=== PATIENT | male | born 2000 | race American Indian/Alaskan Native ===

== ENCOUNTER 2021-04-23 10:36 | Emergency (ER) | payer OTHER ==
--- NOTE | 2021-04-23 12:48 | Emergency Department Report ---
ED General Adult HPI - General Chief complaint: Hyperglycemia Stated complaint: SYMPTOMS OF DIABETES Time Seen by Provider: 04/23/21 12:23 Source: patient Mode of arrival: Ambulatory Limitations: No Limitations - History of Present Illness Initial comments: Patient is a 20-year-old male who presents due to concerns of diabetes. He states he has had symptoms for approximately a month but got worse in the last week. He has associated increased thirst, dry mouth, polyuria, nausea. He denies any fever, nausea, vomiting, diarrhea, cough, shortness of breath, recent illness, dark illness. Patient has no past medical history. No allergies to medicines. He states diabetes does run in his family. - Related Data Previous Rx's Medication Instructions Recorded Last Taken Type Blood Sugar Diagnostic [Test 1 each MC TID #1 box 04/23/21 Unknown Rx Strips] Insulin NPH/Regular [Novolin 70/30] 15 unit SUB-Q TIDAC #1 vial 04/23/21 Unknown Rx Syringe-Needle,Insulin,0.5 ml 1 each MC TIDAC #1 box 04/23/21 Unknown Rx [Insulin Syringe/Needle 0.5 ML] Allergies Allergy/AdvReac Type Severity Reaction Status Date / Time No Known Allergies Allergy Unverified 04/23/21 12:19 ED Review of Systems ROS: Stated complaint: SYMPTOMS OF DIABETES Other details as noted in HPI Comment: All other systems reviewed and negative ED Past Medical Hx - Past Medical History Previous Medical History?: No - Surgical History Past Surgical History?: No - Medications Home Medications: Home Medications Medication Instructions Recorded Confirmed Last Taken Type Blood Sugar Diagnostic [Test 1 each MC TID #1 box 04/23/21 Unknown Rx Strips] Insulin NPH/Regular [Novolin 70/30] 15 unit SUB-Q TIDAC #1 vial 04/23/21 Unknown Rx Syringe-Needle,Insulin,0.5 ml 1 each MC TIDAC #1 box 04/23/21 Unknown Rx [Insulin Syringe/Needle 0.5 ML] ED Physical Exam - General Limitations: No Limitations General appearance: alert, in no apparent distress - Head Head exam: Present: atraumatic, normocephalic - Eye Eye exam: Present: normal appearance - ENT ENT exam: Present: mucous membranes moist - Respiratory Respiratory exam: Present: normal lung sounds bilaterally. Absent: respiratory distress, wheezes, rales, rhonchi, stridor, chest wall tenderness, accessory muscle use, decreased breath sounds, prolonged expiratory - Cardiovascular Cardiovascular Exam: Present: regular rate, normal rhythm, normal heart sounds. Absent: systolic murmur, diastolic murmur, rubs, gallop - Neurological Exam Neurological exam: Present: alert, oriented X3 - Psychiatric Psychiatric exam: Present: normal affect, normal mood - Skin Skin exam: Present: warm, dry, intact ED Course Vital Signs 04/23/21 04/23/21 04/23/21 15:32 16:32 18:14 Temperature Pulse Rate 95 H 80 Respiratory 18 19 18 Rate Blood Pressure 131/81 131/81 [Right] O2 Sat by Pulse 99 98 100 Oximetry 04/23/21 19:00 Temperature 98.5 F Pulse Rate 99 H Respiratory 16 Rate Blood Pressure 120/78 [Right] O2 Sat by Pulse 96 Oximetry - Consultations Consultation #1: 04/23/21 13:[address] Davis, ER attending who advises hospitalist admission and insulin drip 04/23/21 13:[address] Ruiz, hospitalist regarding patient presentation and results, he advised to give patient IV fluids and 10 to 15 units of IV insulin a nd to hold insulin drip for now and he will assess patient in the emergency department 04/23/21 13:[address] Davis, ER attending who is agreeable with plan 04/23/21 16:[address] Davis, ER attending regarding patient's repeat labs, he advised he will order a insulin drip and he will discuss case with hospitalist - EJ/Peripheral Line Arm L Time Out Performed: Yes Indications: other (pt needs IV for fluids and medications, nurse available due to staffing ) Skin Cleansed in Sterile Fashion: Yes Size: 20 Dressing Placed: Tegaderm, tape Patient Tolerated Procedure: well, no complications ED Medical Decision Making - Lab Data Result diagrams: 04/23/21 12:28 04/23/21 20:17 Labs 04/23/21 04/23/21 04/23/21 12:18 12:28 12:28 WBC 8.7 RBC 5.40 H Hgb 14.8 Hct 48.1 H MCV 89 MCH 28 MCHC 31 L RDW 13.7 Plt Count 354 Lymph % (Auto) 12.8 L [place] % (Auto) 6.3 Eos % (Auto) 0.2 Baso % (Auto) 0.3 Lymph # (Auto) 1.1 L [place] # (Auto) 0.5 Eos # (Auto) 0.0 Baso # (Auto) 0.0 Seg Neutrophils % 80.4 H Seg Neutrophils # 7.0 VBG pH Sodium 123 L Potassium 4.6 Chloride 81.1 L Carbon Dioxide 22 Anion Gap 25 BUN 14 Creatinine 1.3 Estimated GFR > 60 BUN/Creatinine Ratio 11 Glucose 1181 H* POC Glucose > 600 H Calcium 10.0 Phosphorus Magnesium Total Bilirubin 0.80 AST 28 ALT 43 Alkaline Phosphatase 150 H Total Protein 7.8 Albumin 4.6 Albumin/Globulin Ratio 1.4 Urine Color Urine Turbidity Urine pH Ur Specific [place] Urine Protein Urine Glucose (UA) Urine Ketones Urine Blood Urine Nitrite Urine Bilirubin Urine Urobilinogen Ur Leukocyte Esterase Urine WBC (Auto) Urine RBC (Auto) 04/23/21 04/23/21 04/23/21 12:28 14:55 15:12 WBC RBC Hgb Hct MCV MCH MCHC RDW Plt Count Lymph % (Auto) [place] % (Auto) Eos % (Auto) Baso % (Auto) Lymph # (Auto) [place] # (Auto) Eos # (Auto) Baso # (Auto) Seg Neutrophils % Seg Neutrophils # VBG pH 7.304 L Sodium 133 L D Potassium 4.6 Chloride 89.0 L Carbon Dioxide 26 Anion Gap 23 BUN 14 Creatinine 1.2 Estimated GFR > 60 BUN/Creatinine Ratio 12 Glucose 738 H* POC Glucose > 600 H Calcium 11.1 H Phosphorus Magnesium Total Bilirubin AST ALT Alkaline Phosphatase Total Protein Albumin Albumin/Globulin Ratio Urine Color Urine Turbidity Urine pH Ur Specific [place] Urine Protein Urine Glucose (UA) Urine Ketones Urine Blood Urine Nitrite Urine Bilirubin Urine Urobilinogen Ur Leukocyte Esterase Urine WBC (Auto) Urine RBC (Auto) 04/23/21 04/23/21 04/23/21 16:54 16:54 17:47 WBC RBC Hgb Hct MCV MCH MCHC RDW Plt Count Lymph % (Auto) [place] % (Auto) Eos % (Auto) Baso % (Auto) Lymph # (Auto) [place] # (Auto) Eos # (Auto) Baso # (Auto) Seg Neutrophils % Seg Neutrophils # VBG pH Sodium 138 Potassium 4.6 Chloride 95.4 L Carbon Dioxide 22 Anion Gap 25 BUN 13 Creatinine 1.3 Estimated GFR > 60 BUN/Creatinine Ratio 10 Glucose 586 H* POC Glucose 483 H Calcium 9.9 Phosphorus 3.80 Magnesium 2.30 Total Bilirubin AST ALT Alkaline Phosphatase Total Protein Albumin Albumin/Globulin Ratio Urine Color Urine Turbidity Urine pH Ur Specific [place] Urine Protein Urine Glucose (UA) Urine Ketones Urine Blood Urine Nitrite Urine Bilirubin Urine Urobilinogen Ur Leukocyte Esterase Urine WBC (Auto) Urine RBC (Auto) 04/23/21 04/23/21 04/23/21 18:16 18:53 20:04 WBC RBC Hgb Hct MCV MCH MCHC RDW Plt Count Lymph % (Auto) [place] % (Auto) Eos % (Auto) Baso % (Auto) Lymph # (Auto) [place] # (Auto) Eos # (Auto) Baso # (Auto) Seg Neutrophils % Seg Neutrophils # VBG pH Sodium 139 Potassium 3.8 Chloride 96.8 L Carbon Dioxide 23 Anion Gap 23 BUN 12 Creatinine 1.2 Estimated GFR > 60 BUN/Creatinine Ratio 10 Glucose 487 H POC Glucose 492 H 342 H Calcium 9.9 Phosphorus Magnesium Total Bilirubin AST ALT Alkaline Phosphatase Total Protein Albumin Albumin/Globulin Ratio Urine Color Urine Turbidity Urine pH Ur Specific [place] Urine Protein Urine Glucose (UA) Urine Ketones Urine Blood Urine Nitrite Urine Bilirubin Urine Urobilinogen Ur Leukocyte Esterase Urine WBC (Auto) Urine RBC (Auto) 04/23/21 04/23/21 20:17 Unknown WBC RBC Hgb Hct MCV MCH MCHC RDW Plt Count Lymph % (Auto) [place] % (Auto) Eos % (Auto) Baso % (Auto) Lymph # (Auto) [place] # (Auto) Eos # (Auto) Baso # (Auto) Seg Neutrophils % Seg Neutrophils # VBG pH Sodium 141 Potassium 3.4 L Chloride 99.7 Carbon Dioxide 25 Anion Gap 20 BUN 11 Creatinine 1.0 Estimated GFR > 60 BUN/Creatinine Ratio 11 Glucose 376 H POC Glucose Calcium 10.6 H Phosphorus Magnesium Total Bilirubin AST ALT Alkaline Phosphatase Total Protein Albumin Albumin/Globulin Ratio Urine Color Colorless Urine Turbidity Clear Urine pH 5.0 Ur Specific [place] 1.024 Urine Protein <15 mg/dl Urine Glucose (UA) >=500 Urine Ketones 20 Urine Blood Neg Urine Nitrite Neg Urine Bilirubin Neg Urine Urobilinogen < 2.0 Ur Leukocyte Esterase Neg Urine WBC (Auto) < 1.0 Urine RBC (Auto) 2.0 Vital Signs 04/23/21 04/23/21 04/23/21 15:32 16:32 18:14 Temperature Pulse Rate 95 H 80 Respiratory 18 19 18 Rate Blood Pressure 131/81 131/81 [Right] O2 Sat by Pulse 99 98 100 Oximetry 04/23/21 19:00 Temperature 98.5 F Pulse Rate 99 H Respiratory 16 Rate Blood Pressure 120/78 [Right] O2 Sat by Pulse 96 Oximetry - Medical Decision Making Patient is a 20-year-old male who presents due to concerns of diabetes. He states he has had symptoms for approximately a month but got worse in the last week. He has associated increased thirst, dry mouth, polyuria, nausea. He denies any fever, nausea, vomiting, diarrhea, cough, shortness of breath, recent illness, dark illness. Patient has no past medical history. No allergies to medicines. He states diabetes does run in his family. Vitals are stable. No abnormality on physical examination as documented in chart. Lab significant for dehydration elevated blood glucose of 1181, anion gap 25, UA with 20 ketones. Discuss[address] case with Dr. Davis, ER attending who advises hospitalist admission and insulin drip. discussed case with Dr. Ruiz, hospitalist regarding patient presentation and results, he advised to give patient IV fluids and 10 to 15 units of IV insulin and to hold insulin drip for now and he will assess patient in the emergency department. discussed case with Dr. Davis, ER attending who is agreeable with plan.Discussed case with Dr. Davis, ER attending regarding patient's repeat labs, he advised he will order a insulin drip and he will discuss case with hospitalist. Hospitalist, Dr. Ruiz resumed care of patient. Critical Care Time: Yes Critical care time in (mins) excluding proc time.: 35 Critical care attestation.: If time is entered above; I have spent that time in minutes in the direct care of this critically ill patient, excluding procedure time. Critical Care Time: Critical care time includes multiple reexaminations, interpretation of diagnostic and laboratory studies, consultations ED Disposition Clinical Impression: Hyperglycemia Disposition: OP ADMIT IP TO THIS HOSP Is pt being admited?: Yes Does the pt Need Aspirin: No Condition: Fair Instructions: Hyperglycemia Prescriptions: Syringe-Needle,Insulin,0.5 ml [Insulin Syringe/Needle 0.5 ML] [address] [facility] Insulin NPH/Regular [Novolin 70/30] 15 unit SUB-Q TIDAC #1 vial Blood Sugar Diagnostic [Test Strips] 1 each TID #1 box Referrals: PRIMARY CARE,MD [Primary Care Provider] - 3-5 Days Time of Disposition: 16:31 Print Language: GUAMANIAN
[2021-04-23 12:52] LABS: Basophils % (Auto) 0.3 % (0.0-1.8); Eosinophils % (Auto) 0.2 % (0.0-4.3); Lymphocytes # (Auto) 1.1 K/mm3 (1.2-5.4); Lymphocytes % (Auto) 12.8 % (13.4-35.0); Mean Corpuscular HGB Conc 31 % (32-34); Mean Corpuscular Volume 89 fl (84-94); Monocytes # (Auto) 0.5 K/mm3 (0.0-0.8); Monocytes % (Auto) 6.3 % (0.0-7.3); Platelet Count 354 K/mm3 (140-440); Red Cell Distribution Width 13.7 % (13.2-15.2)
[2021-04-23 12:58] LABS: Hematocrit 48.1 % (35.5-45.6); Hemoglobin 14.8 gm/dl (11.8-15.2)
[2021-04-23 13:01] LABS: Bilirubin,Urine NEG (Negative); Blood,Urine NEG (Negative); Color,Urine Colorless (Yellow); Protein,Urine <15 mg/dL mg/dL (Negative); Urobilinogen,Urine < 2.0 mg/dL (<2.0); WBC,Urine < 1.0 /HPF (0.0-6.0)
[2021-04-23 13:08] LABS: Alanine Aminotransferase 43 units/L (7-56); Albumin 4.6 g/dL (3.9-5); BUN/Creatinine Ratio 11; Blood Urea Nitrogen 14 mg/dL (9-20); Hemolysis Index 7
[2021-04-23] MEDS ORDERED: SODIUM CHLORIDE 0.9% 1000 ML 1,000 ML IV ONE ×3 (13:11→20:32)
[2021-04-23] MEDS ORDERED: DEXTROSE 50% IN WATER (25GM) 50 ML SYRINGE IV PRN ×2 (13:26→22:07)
[2021-04-23] MEDS ORDERED: INSULIN REGULAR, HUMAN 100 UNITS/1 ML IV ONE ×2 (13:31→20:30)
[2021-04-23] MEDS ORDERED: INSULIN REGULAR, HUMAN 100 UNITS in SODIUM CHLORIDE 0.9% 99 ML IV SCH ×2 (14:00→17:00)
[2021-04-23 16:07] LABS: BUN/Creatinine Ratio 12; Blood Urea Nitrogen 14 mg/dL (9-20); Calcium 11.1 mg/dL (8.4-10.2); Hemolysis Index 5
[2021-04-23 17:34] LABS: BUN/Creatinine Ratio 10; Blood Urea Nitrogen 13 mg/dL (9-20); Calcium 9.9 mg/dL (8.4-10.2); Hemolysis Index 2
[2021-04-23 18:46] LABS: BUN/Creatinine Ratio 10; Blood Urea Nitrogen 12 mg/dL (9-20); Calcium 9.9 mg/dL (8.4-10.2); Hemolysis Index 40
[2021-04-23] MEDS ORDERED: SODIUM CHLORIDE 0.9% 1000 ML 1,000 ML ONE (20:24)
[2021-04-23] MEDS ORDERED: INSULIN REGULAR, HUMAN 100 UNITS/1 ML ONE ×2 (20:24)
[2021-04-23 20:44] LABS: BUN/Creatinine Ratio 11; Blood Urea Nitrogen 11 mg/dL (9-20); Calcium 10.6 mg/dL (8.4-10.2); Hemolysis Index 0
[2021-04-23] MEDS ORDERED: INSULIN LISPRO 100 UNIT/ML SUB-Q SCH (23:10)
[2021-04-23 23:24] VITALS: BP 127/86
[2021-04-24] MEDS ORDERED: INSULIN LISPRO 100 UNIT/ML SUB-Q SCH (22:10)
== END 2021-04-24 00:18 | disposition home or self-care (01) ==
LOC: ED 10:36
DX: R73.9 Hyperglycemia, unspecified (principal)
CPT/HCPCS: 36415; 80048; 80053; 81001; 82805; 82962; 83735; 84100; 85025; 96361; 96365; 96366; 96372; 96376; 99284; J7030; 99291; J1815